=== PATIENT | male | born 1965 | race Caucasian/White ===

== ENCOUNTER 2018-07-20 13:49 | Emergency (ER) | payer MEDICAID ==
[2018-07-20 13:49] VITALS: BP 0/0
[2018-07-20] MEDS ORDERED: ATROPINE SULFATE 0.1 MG/ML 10 ML SYRINGE IVP ONE (13:50)
[2018-07-20] MEDS ORDERED: SODIUM BICARBONATE [ADULT] 8.4% 50 MEQ/50 ML SYRINGE IVP ONE (13:50)
[2018-07-20] MEDS ORDERED: CALCIUM GLUCONATE 100 MG/ML 10 ML IVP ONE (13:50)
[2018-07-20] MEDS ORDERED: DOPamine HCL/D5W 400 MG/250 ML IV BAG IV ONE (13:50)
[2018-07-20] MEDS ORDERED: EPINEPHrine 1:10,000 [1 MG/10 ML] SYRINGE IVP ONE (13:50)
[2018-07-20] MEDS ORDERED: DARU1TAB PO (16:34)
[2018-07-20] MEDS ORDERED: GABA-531 PO (16:34)
[2018-07-20] MEDS ORDERED: IPRA4AER IH (16:34)
[2018-07-20] MEDS ORDERED: TERA5CAP12 PO (16:34)
[2018-07-20] MEDS ORDERED: LEVO250 PO (16:34)
[2018-07-20] MEDS ORDERED: FLUC200T PO (16:34)
[2018-07-20] MEDS ORDERED: AMOX1TAB16 PO (16:34)
[2018-07-20] MEDS ORDERED: TRAZ-219 PO (16:34)
[2018-07-20] MEDS ORDERED: EMTR1TAB13 PO (16:34)
[2018-07-20] MEDS ORDERED: VALA500T38 PO (16:34)
== END 2018-07-20 14:46 | disposition expired ==
LOC: EDBD 13:49 → EMS 13:49
DX: I46.9 Cardiac arrest, cause unspecified (principal); R11.10 Vomiting, unspecified
CPT/HCPCS: 31500; 92950; 99291; J0171; J0461; J0610; J1265; J3490